=== PATIENT | male | born 1995 | race Caucasian/White ===

== ENCOUNTER 2016-07-03 09:16 | Emergency (ER) | payer OTHER ==
[~2016-07-03] VITALS: Ht 195.6 cm; Wt 93.2 kg
[2016-07-03 09:39] VITALS: BP 157/77; PULSE 63; RESP 16; O2SAT 97
[2016-07-03] MEDS ORDERED: Tetracaine 0.5% 4 mL Ophthalmic Solution BOTH_EYES ONE (09:40)
[2016-07-03] MEDS ORDERED: Fluorescein 0.6 mg Ophthalmic Strip BOTH_EYES ONE (09:40)
[2016-07-03] MEDS ORDERED: 0.9% Sodium Chloride Inhalation Solution BOTH_EYES ONE (09:40)
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
[2016-07-03 13:42] VITALS: PULSE 72; RESP 16; O2SAT 98
[2016-07-03 13:58] VITALS: BP 147/78; PULSE 57; RESP 16; O2SAT 98
== END 2016-07-03 14:05 | disposition home or self-care (01) ==
LOC: SED 09:16
DX: T59.3X4A Toxic effect of lacrimogenic gas, undetermined, initial encounter (principal); H57.8 Other specified disorders of eye and adnexa; X58.XXXA Exposure to other specified factors, initial encounter; Y93.89 Activity, other specified; Y92.9 Unspecified place or not applicable; Y99.0 Civilian activity done for income or pay; J45.909 Unspecified asthma, uncomplicated; Z88.0 Allergy status to penicillin